=== PATIENT | male | born 1990 | race African-American/Black ===

== ENCOUNTER 2017-12-18 08:49 | Emergency (ER) | payer BC, OTHER ==
[2017-12-18 09:05] LABS: #Basophils 0.1 thou/uL (0.0-0.2); #Eosinphils 0.1 thou/uL (0.0-0.7); #Lymphocytes 2.4 thou/uL (1.20-3.40); #Monocytes 0.5 thou/uL (0.11-0.59); #Neutrophils 1.9 thou/uL (1.40-6.50); %Basophils 1.6 % (0.0-1.0); %Eosinophils 1.1 % (0.0-10.0); %Lymphocytes 49.3 % (21.0-51.0); %Monocytes 9.1 % (0.0-10.0); %Neutrophils 38.9 % (42.0-75.0); Hemoglobin 13.4 g/dL (14.0-18.0); Mean Corpuscular HGB CONC 33.4 g/dL (32.0-36.0); Mean Corpuscular Hemoglobin 27.4 pg (27.0-31.0); Mean Corpuscular Volume 82.2 fl (80.0-94.0); Mean Platelet Volume 8.8 fL (7.4-10.4); Platelet Count 230 thou/uL (130-400); RBC Distribution Width 12.3 % (11.5-14.5); Red Blood Cell (RBC) Count 4.86 mill/uL (4.70-6.10); White Blood Cell (WBC) Count 4.9 thou/uL (4.8-10.8)
[2017-12-18 09:26] LABS: ALT (SGPT) 21 U/L (8-55); AST (SGOT) 25 U/L (5-34); Alkaline Phosphatase 60 U/L (40-150); Anion Gap 12 mmol/L (10-20); BUN (Urea Nitrogen) 13 mg/dL (8.9-20.6); Bilirubin, Total 0.7 mg/dL (0.2-1.2); Calc. Creatinine Clearance 0 mL/min (70-130); Calcium 8.9 mg/dL (7.8-10.44); Carbon Dioxide 24 mmol/L (22-29); Chloride 107 mmol/L (98-107); Estimated GFR-MDRD 72; Globulin 3.1 g/dL (2.4-3.5); Glucose 99 mg/dL (70-105); Potassium 4.2 mmol/L (3.5-5.1); Protein, Total 7.1 g/dL (6.0-8.3); Sodium 139 mmol/L (136-145)
[2017-12-18] MEDS ORDERED: Ketorolac Tromethamine 30 MG/ML VIAL ONE (09:44)
--- NOTE | 2017-12-18 09:52 | RAD ---
PORTABLE CHEST 1 VIEW: Date: 12/18/17 Time: 0808 hours HISTORY: Fall, loss of consciousness. FINDINGS/IMPRESSION: The heart size is normal. No focal areas of consolidation, pneumothorax, or pleural effusions are see n. POS: [facility]
--- NOTE | 2017-12-18 09:55 | CT ---
CT OF THE BRAIN WITHOUT CONTRAST: Date: 12/18/17 HISTORY: Fall walking down stairs 30 ft. Loss of consciousness with posturing on the scene. TECHNIQUE: Multiple contiguous axial images were obtained in a CT of the brain without contrast. FINDINGS: The brain is normal in morphology and attenuation without focal lesions or confluent areas of infarct ion. There is no evidence of hydrocephalus, intracranial hemorrhage, or extra-axial fluid collections . The calvarium and overlying soft tissues are unremarkable. Visualized paranasal sinuses and mastoid a ir cells are well aerated. IMPRESSION: No evidence of acute intracranial abnormality. Dr. Danielson notified of the findings at 0909 hours on 12/18/17. CODE CR. POS: [facility]
--- NOTE | 2017-12-18 09:56 | CT ---
CT CERVICAL SPINE WITH CORONAL AND SAGITTAL REFORMATIONS: Date: 12/18/17 HISTORY: Level II trauma. Fall 30 ft down stairs with loss of consciousness. FINDINGS/IMPRESSION: No acute fracture or subluxation is identified. Findings reported over the telephone to ER physician, Dr. Julian Danielson, at 0918 hours. CODE CR. POS: [facility]
--- NOTE | 2017-12-18 10:19 | CT ---
CT OF THE CHEST WITH CONTRAST CT OF THE ABDOMEN AND PELVIS CONTRAST LIMITED CT OF THORACIC AND LUMBOSACRAL SPINE WITH CONTRAST: Date: 12/18/17 HISTORY: Patient fell down stairs, approximately 30 ft, with loss of consciousness and posturing on the scene. Patient complains of chest pain, abdominal pain, and back pain. TECHNIQUE: 1. Multiple contiguous axial images were obtained in a CT of the chest with contrast. Coronal reform ats were performed. 2. Multiple contiguous axial images were obtained in a CT of the abdomen and pelvis with contrast. C oronal reformats were performed. 3. Limited CTs of thoracic and lumbosacral spines performed. Sagittal and coronal reformats were cre ated based off of images obtained in the chest, abdomen, and pelvic CTs. FINDINGS: CT CHEST: No pneumothorax or pleural effusion seen. No focal infiltrates or pulmonary nodules present. The hear t is normal in size without cardiac abnormality. No hilar or mediastinal lymphadenopathy are seen. Th e chest wall soft tissues and bones of the thorax are unremarkable. CT ABDOMEN/PELVIS: The liver, gallbladder, kidneys, adrenal glands, spleen, and pancreas are unremarkable. No free air, free fluid, or stranding changes are seen in the abdomen or pelvis. No abdominal or pelvic lymphadeno praveena are seen. The large and small bowel are unremarkable. The appendix is normal. The abdominal wal l soft tissues and bones of the pelvis are unremarkable. LIMITED CT OF THE THORACIC AND LUMBOSACRAL SPINE: The vertebral bodies and intervertebral discs demonstrate normal height and alignment without fractur e or subluxation. No degenerative changes are seen. IMPRESSION: 1. No evidence of acute intrathoracic abnormality. 2. No evidence of acute intra-abdominal/pelvic abnormality. 3. No evidence of acute osseous abnormality of the thoracic or lumbosacral spine. Dr. Danielson notified of the findings at 0919 hours on 12/18/17. CODE CR. POS: [facility]
--- NOTE | 2017-12-18 10:25 | RAD ---
AP PELVIS: Date: 12/18/17 HISTORY: Level II trauma, pelvic pain. FINDINGS/IMPRESSION: No fracture or dislocation is seen. There is contrast in the urinary bladder. POS: [facility]
--- NOTE | 2017-12-18 10:54 | RAD ---
RIGHT FEMUR 2 VIEWS: Date: 12/18/17 HISTORY: 27-year-old male with history of right femur pain following a fall walking down stairs, with fall of approximately 30 ft. FINDINGS: Two views of the right femur demonstrate no evidence for acute femoral fracture. Screws stabilize the proximal tibia in the anterior posterior dimension. IMPRESSION: No right femur fracture or dislocation. Postoperative screws fixating the proximal tibia. POS: [facility]
[2017-12-18] MEDS ORDERED: Acetaminophen 500 MG TAB ONE (11:27)
[2017-12-18 11:38] LABS: Bilirubin Negative (Negative); Blood, Urine Negative (Negative); Clarity CLEAR (Clear); Glucose, Urine (Dipstick) Negative (Negative); Leukocyte Negative (Negative); Nitrite Negative (Negative); Protein, Urine (Dipstick) Negative (Neg-Trace); pH, Urine 6.5 (5.0-9.0)
[2017-12-18 11:49] LABS: Specific Gravity, Urine 1.053 (1.002-1.036)
[2017-12-18] MEDS ORDERED: ISOVUE-370 76%-LOCM 1 ML ONE (18:21)
== END 2017-12-18 14:16 | disposition home or self-care (01) ==
LOC: ERS 08:49
DX: S06.0X9A Concussion with loss of consciousness of unspecified duration, initial encounter (principal); W10.9XXA Fall (on) (from) unspecified stairs and steps, initial encounter; Y92.65 Oil rig as the place of occurrence of the external cause; Y99.0 Civilian activity done for income or pay
CPT/HCPCS: 70450; 71045; 71260; 72125; 72170; 74177; 80053; 81003; 83605; 85025; 93005; 96361; 96374; J1885

== ENCOUNTER 2017-12-18 19:31 | Emergency (ER) | payer BC ==
[~2017-12-18 19:31] MED LIST: ISOVUE-370 76%-LOCM 1 ML ONE
[2017-12-18 20:04] LABS: Hemoglobin 14.6 g/dL (14.0-18.0); Mean Corpuscular HGB CONC 32.2 g/dL (32.0-36.0); Mean Corpuscular Hemoglobin 26.3 pg (27.0-31.0); Mean Corpuscular Volume 81.8 fl (80.0-94.0); Mean Platelet Volume 8.4 fL (7.4-10.4); Platelet Count 235 thou/uL (130-400); RBC Distribution Width 12.5 % (11.5-14.5); Red Blood Cell (RBC) Count 5.53 mill/uL (4.70-6.10); White Blood Cell (WBC) Count 7.4 thou/uL (4.8-10.8)
[2017-12-18 20:05] LABS: INR-International Normal Ratio 1.1; PTT 25.7 SEC (22.9-36.1); Prothrombin Time 14.2 SEC (12.0-14.7)
--- NOTE | 2017-12-18 20:11 | CT ---
CT HEAD WITHOUT CONTRAST: 12/18/17 Multiple axial tomograms obtained through the head with IV enhancement. HISTORY: Trauma. Ventricles are normal size and position. No intracranial hemorrhage or mass. No evidence of skull fra cture. The sinuses and mastoids are well aerated. IMPRESSION: No acute findings. POS: [facility]
--- NOTE | 2017-12-18 20:12 | CT ---
CT CERVICAL SPINE: 12/18/17 Multiple axial tomograms obtained through the cervical spine with multiplanar reconstruction. HISTORY: Trauma, seizure disorder. Cervical vertebrae maintain normal height and alignment. No evidence of fracture. IMPRESSION: Unremarkable CT cervical spine. POS: [facility]
[2017-12-18 20:21] LABS: ALT (SGPT) 22 U/L (8-55); AST (SGOT) 23 U/L (5-34); Albumin 4.3 g/dL (3.5-5.0); Alkaline Phosphatase 64 U/L (40-150); Anion Gap 11 mmol/L (10-20); BUN (Urea Nitrogen) 11 mg/dL (8.9-20.6); Bilirubin, Total 0.6 mg/dL (0.2-1.2); Calc. Creatinine Clearance 0 mL/min (70-130); Calcium 9.4 mg/dL (7.8-10.44); Carbon Dioxide 24 mmol/L (22-29); Chloride 106 mmol/L (98-107); Estimated GFR-MDRD Greater than 90; Globulin 3.2 g/dL (2.4-3.5); Glucose 85 mg/dL (70-105); Lipase 69 U/L (8-78); Potassium 4.1 mmol/L (3.5-5.1); Protein, Total 7.5 g/dL (6.0-8.3); Sodium 137 mmol/L (136-145)
[2017-12-18 20:23] LABS: Eosinophils 1 % (0-10); Lymphocytes 41 % (21-51); MDiff Complete? YES; Monocytes 6 % (0-10); Neutrophil 44 % (42-75); PLT Morphology Comment Appears Adequate; RBC Morphology Normal; Reactive Lymphocytes 7 % (0-10)
--- NOTE | 2017-12-18 20:25 | CT ---
CT CHEST WITH IV CONTRAST CT ABDOMEN AND PELVIS WITH IV CONTRAST 12/18/17 Multiple axial tomograms obtained through the chest, abdomen and pelvis with IV enhancement. Trauma p rotocol. INDICATIONS: Seizure with trauma and complains of chest and abdomen pain. CT CHEST: Lung wheatley are clear. Mediastinum unremarkable. Bony thorax appears intact. IMPRESSION: No evidence of acute chest injury. CT ABDOMEN AND PELVIS: Liver, spleen, pancreas and kidneys are unremarkable. Bowel loops unremarkable. Urinary bladder intac t. No free bladder fluid in the abdomen or pelvis. Bony pelvis appears intact. IMPRESSION: No acute intra-abdominal injury identified. CT THORACIC AND LUMBAR SPINE: Sagittal and coronal images of the thoracic and lumbar spine obtained. Thoracic and lumbar vertebrae maintain normal height and alignment. No compression deformity or acute fracture identified. POS: [facility]
[2017-12-18] MEDS ORDERED: Morphine 10 MG/ML VIAL ONE (21:32)
[2017-12-18] MEDS ORDERED: Ketorolac Tromethamine 30 MG/ML VIAL ONE (21:33)
== END 2017-12-18 22:19 | disposition short-term general hospital (02) ==
LOC: ERS 19:31
DX: R56.1 Post traumatic seizures (principal); Z79.899 Other long term (current) drug therapy; S06.0X9A Concussion with loss of consciousness of unspecified duration, initial encounter; W10.9XXA Fall (on) (from) unspecified stairs and steps, initial encounter; Y92.65 Oil rig as the place of occurrence of the external cause; Y99.0 Civilian activity done for income or pay
CPT/HCPCS: 70450; 71045; 71260; 72125; 72170; 74177; 80053; 81003; 83605; 83690; 85025; 85610; 85730; 93005; 94760; 96361; 96374; 96375; G0390; J1885; J2270